=== PATIENT | female | born 1940 | race Caucasian/White ===

== ENCOUNTER 2020-12-27 08:21 | Outpatient (REF) | payer MEDICARE, OTHER, SELFPAY ==
--- NOTE | ~2020-12-27 | US_ITS ---
EXAMINATION: US ABDOMEN AORTA CLINICAL INFORMATION: Aortic ectasia. COMPARISON: None TECHNIQUE: Limited abdominal ultrasound with imaging of abdominal aorta was performed. FINDINGS: There is atherosclerotic plaque seen throughout the abdominal aorta with acoustic shadowing in the proximal and mid abdominal aorta. The proximal abdominal aorta measures 2.7 x 2.6 cm in AP and transverse dimension. Mid abdominal aorta measures 2.4 x 2.1 cm in AP and transverse dimension. Distal abdominal aorta measures 2.0 x 2.0 cm. Peak systolic velocity measures 50.7 cm/s. Right common iliac artery measures 1.2 x 1.1 cm. Left common iliac artery measures 1.2 x 1.2 cm. US/US abdominal aortic aneurysm IMPRESSION: No aneurysmal dilatation of abdominal aorta is seen. Atherosclerotic plaque seen throughout the abdominal aorta with acoustic shadowing.
== END 2020-12-27 08:22 | disposition home or self-care (01) ==
LOC: HO.US 08:21
PROVIDERS: PCP Internal Medicine; Visit Provider Internal Medicine
DX: I77.819 Aortic ectasia, unspecified site (principal)
CPT/HCPCS: 76706

== ENCOUNTER 2020-12-27 09:53 | Outpatient (REF) | payer MEDICARE, OTHER, SELFPAY ==
[2020-12-27 14:25] LABS: Alanine Aminotransferase 18 U/L (0-31); Albumin Level 4.3 g/dL (3.5-5.0); Alkaline Phosphatase 50 U/L (39-117); Anion Gap 14 (12-20); Aspartate Amino Transferase 19 U/L (5-31); Bilirubin Total 0.6 mg/dL (0.0-1.0); Blood Urea Nitrogen 13 mg/dL (9-16); Calcium 9.8 mg/dL (8.4-10.2); Carbon Dioxide 28 mmol/L (22-29); Chloride 102 mmol/L (96-108); Estimated Glomerular Filt Rate > 60; Glucose Fasting 85 mg/dL (60-99); Potassium 4.1 mmol/L (3.3-5.1); Sodium 140 mmol/L (135-145); Total Protein 7.3 g/dL (6.5-8.0)
[2020-12-27 14:50] LABS: Vitamin D 25-OH Total 25.7 ng/mL (>30)
[2021-01-02 05:36] LABS: N-Telopeptide 18 (see note); NTXCreaRU 33 mg/dL (20-275)
== END 2020-12-27 09:54 | disposition home or self-care (01) ==
LOC: HO.10HDL 09:53
PROVIDERS: Visit Provider Internal Medicine
DX: E55.9 Vitamin D deficiency, unspecified (principal); M81.0 Age-related osteoporosis without current pathological fracture
CPT/HCPCS: 36415; 80053; 82306; 82523

== ENCOUNTER 2021-05-25 08:53 | Outpatient (REF) | payer MEDICARE, OTHER, SELFPAY ==
[2021-05-25 10:17] LABS: Hematocrit 38.1 % (37-47); Hemoglobin 12.4 g/dl (12.0-16.0); Mean Corpuscular HGB Conc 32.5 g/dl (31.0-35.0); Mean Corpuscular Hemoglobin 32.3 pg (27.0-33.0); Mean Corpuscular Volume 99.2 fL (80-98); Platelet Count 272 X10*3/uL (160-400); Red Blood Count 3.84 X10*6/uL (4.20-5.50); White Blood Count 4.2 X10*3/uL (4.8-10.8)
[2021-05-25 10:37] LABS: Alanine Aminotransferase 17 U/L (0-31); Albumin Level 4.2 g/dL (3.5-5.0); Alkaline Phosphatase 54 U/L (39-117); Anion Gap 12 (12-20); Aspartate Amino Transferase 21 U/L (5-31); Bilirubin Total 0.6 mg/dL (0.0-1.0); Blood Urea Nitrogen 11 mg/dL (9-16); Calcium 9.2 mg/dL (8.4-10.2); Carbon Dioxide 25 mmol/L (22-29); Chloride 106 mmol/L (96-108); Cholesterol 196 mg/dL; Estimated Glomerular Filt Rate > 60; Glucose Fasting 109 mg/dL (60-99); HDL Cholesterol 68 mg/dL; LDL Cholesterol Calculated 113 mg/dl; Potassium 4.2 mmol/L (3.3-5.1); Sodium 139 mmol/L (135-145); Total Protein 7.1 g/dL (6.5-8.0); Triglycerides 75 mg/dL
[2021-05-25 10:37] LABS: Appearance Urine CLEAR; Color Urine YELLOW; Glucose Urine UA NEG (NEG); Leukocyte Esterase Urine TRACE (NEG); Nitrite Urine NEG (NEG); Urine Blood NEG (NEG); Urine Ketones NEG (NEG); Urine Protein NEG (NEG-TRACE)
[2021-05-25 10:53] LABS: RBC Urine 0-2 /HPF (0); Renal Epithelial Cells Urine TRACE /LPF; Squamous Epithelial Cell Urine 1+ /LPF
[2021-05-25 10:59] LABS: Thyroid Stimulating Hormone 1.68 uIU/mL (0.32-4.0); Vitamin D 25-OH Total 33.4 ng/mL (>30)
== END 2021-05-25 08:54 | disposition home or self-care (01) ==
LOC: HO.10HDL 08:53
PROVIDERS: Visit Provider Internal Medicine
DX: M81.0 Age-related osteoporosis without current pathological fracture (principal); I10 Essential (primary) hypertension; E03.9 Hypothyroidism, unspecified
CPT/HCPCS: 36415; 80053; 80061; 81001; 82306; 84443; 85027

== ENCOUNTER → 2021-06-27 14:30 | Outpatient (BNVA) | payer MEDICARE, OTHER, SELFPAY | PROVIDERS: PCP Internal Medicine; Referring Provider Internal Medicine; Visit Provider Internal Medicine Cardiovascular Disease | DX: R42 Dizziness and giddiness (principal); I10 Essential (primary) hypertension; I47.1 Supraventricular tachycardia; R07.9 Chest pain, unspecified; Z88.2 Allergy status to sulfonamides; Z79.899 Other long term (current) drug therapy | CPT/HCPCS: 93005; 99202 ==

== ENCOUNTER → 2021-08-28 08:18 | Outpatient (REF) | payer MEDICARE, OTHER, SELFPAY ==
--- NOTE | ~2021-08-28 | NM_ITS ---
Exercise Myocardial perfusion study Indication: Chest pain to evaluate for myocardial ischemia Technique: The patient was brought in for an exercise perfusion study on 08/28/2021. Patient performed exercise as per Dandy protocol and was injected 25 mCi of sestamibi was given intravenously one target HR was achieved. Images were obtained using the SPECT gamma camera interlaced with the gating device. Images were obtained in supine position. Resting perfusion study was performed on 08/29/2021. Patient was administered 25 mCi of sestamibi intravenously at rest. Images were then obtained in supine position. Images obtained with and without CT attenuation. Total DLP 76 mGy-cm. Images were processed with the software and compared side to side in short axis, horizontal long axis and vertical long axis views. Findings: The stress perfusion study showed non attenuated attenuated corrected images show normal uptake of radiotracer in all segments of LV myocardium.. The gated study shows normal LV systolic function with calculated LVEF of 65%. LV cavity is normal in in size. The gated study shows normal systolic wall thickening and contraction of all segments. There is no transient ischemic dilation. Resting study were suboptimal due to subdiaphragmatic uptake otherwise shows shows overall normal uptake of radiotracer in all segments of LV myocardium. Gating at rest reveals normal systolic wall motion with visually estimated ejection fraction at greater than 60%. The findings are consistent with normal myocardial perfusion. NM/NM cardiolite stress test Impression: 1. Normal myocardial perfusion 2. Gated LVEF is T5 percent 3. Transient ischemic dilatation not present Stress EKG is negative for ischemia workload achieved
--- NOTE | 2021-08-28 08:26 | CA_ITS ---
Acquisition Time: 2021-08-28 10:39:24 Total Exercise Time: 00:04:55 Test Indications: DIZZINESS, SVT Medications: SEE CHART Protocol: ECHO Max HR: 160 BPM 114% of Pred: 140 BPM Max BP: 160/090 mmHG Max Work Load: 6.8 METS Exercise stress test with exercise 4 min 55 sec of Echo protocol, without anginal symptoms or report of dizziness, with isolated PACs and short runs of atrial tachycardia, with normotensive response to exercise, without EKG changes meeting criteria for ischemia. Nuclear images pending. Test reviewed with Dr Ramesh. Referred By: Marcellus Gusman Overread By: DOROTHEA JOHNSTON
--- NOTE | 2021-08-28 08:26 | CA_ITS ---
Transthoracic Echocardiogram Amended Patient (Last, First, Middle): Ariana Valdes A Gender: Female Date of : 1940 Age: 80 Procedure Date: 08/28/2021 Procedure Type: Transthoracic Echocardiogram Location: OP Height: 154.94 cm Weight: 57.61 kg BSA: 1.56 m2 Heart Rate: bpm BP: 130 / 80 mmHg Shuttle Van Driver: CINDY Referring MD: Marcellus Gusman MD Symptoms: R42 - Dizziness and giddiness Study Quality: Fair ECG Rhythm: Sinus Conclusions: - The left ventricular systolic function is normal. The calculated ejection fraction is 62% by biplane method. - No obvious valvular pathology seen on this study. Findings Left Ventricle Normal left ventricular cavity size. There is normal left ventricular wall thickness. The left ventricular systolic function is normal. The calculated ejection fraction is 62% by biplane method. E/E prime ratio is between 8 and 15 consistent with indeterminate filling pressures. Evidence suggests grade I (mild) diastolic dysfunction. Right Ventricle Normal right ventricular cavity size and systolic function. Atria The left atrium is normal in size. The right atrium is normal in size. Aortic Valve There is a normal trileaflet aortic valve. There is no aortic valve stenosis. There is trace (trivial) aortic valve regurgitation. Mitral Valve The mitral valve appears normal. There is trace mitral valve regurgitation. There is no mitral valve stenosis. Pulmonic Valve The pulmonic valve was not well visualized. Tricuspid Valve Normal tricuspid valve structure. There is mild tricuspid valve regurgitation. The pulmonary artery systolic pressure is normal. Great Vessels The aortic annulus, sinuses of valsalva, and asc aorta are normal in size. Venous The inferior vena cava is normal in size and collapses greater than 50% with inspiration. Pericardium/Pleural There is no evidence of pericardial effusion. Prior Study Comparison No prior study available for comparison. Recommendations, Care & Conclusions No obvious valvular pathology seen on this study. Measurements 2D Linear Measurements IVSd: 0.92 0.6-0.9/0.6-1.0 cm LVIDd: 3.80 3.9-5.3/4.2-5.9 cm LVIDd Index: 2.44 2.4-3.2/2.2-3.1 cm/m2 LVIDs: 2.69 2.0-3.6 cm LVPWd: 0.84 0.7-1.1 cm Ao Root: 3.40 2.1-3.5 cm LA Diam: 3.50 2.7-3.8/3.0-4.0 cm LAIDs Index: 2.24 1.5-2.3 cm/m2 LV Mass: 120.92 67-162/88-224 g LV Mass Index: 77.51 43-95/49-115 g/m2 LVOT Diam: 2.00 3.0+(-)1.3 cm 2D Volumes LA Vol: 22.20 2D Systolic Function EF 4C: 60.90 >55% EF 2C: 63.00 >55% EF BiP: 61.90 >55% Mitral Valve MV Pk E: 0.65 MV PK A: 0.84 MV Decel Time: 157.00 E/A: 0.80 E'Lateral: 7.72 E'Medial: 5.77 E/E' Med: 11.20 E/E' Lat: 8.40 PHT: 46.00 MVA PHT: 4.78 Decel Mcdonald: 4.12 Aortic Valve AoV Pk Eliezer: 1.13 AoV Pk Grad: 5.00 LVOT LVOT Pk Eliezer: 0.86 LVOT Mn Eliezer: 0.53 LVOT VTI: 0.17 LVOT Pk Grad: 3.00 LVOT Mn Grad: 1.00 LVOT Diam: 2.00 LVOT Area: 3.14 Diastolic Function MV Pk E: 0.65 MV Pk A: 0.84 E/A: 0.80 E'Medial: 5.77 E/E' Med: 11.20 E' Laterial: 7.72 E/E' Lat: 8.40 Right Ventricle TAPSE (mm): 2.26 TVS' Eliezer: 14.70 Tricuspid Valve TR Pk Eliezer: 2.29 TR Pk Grad: 21.00 RA Press: 3.00 RVSP: 24.00 Great Vessels Aorta Ao Root-2D: 3.40 2.0-3.7 cm Ao Asc: 3.60 2.1-3.4 cm Updated in Other Vendor System with Status of Final Vasyl Ramesh MD electronically signed on 08/30/2021 5:20:17 PM with status of Final
== END ==
LOC: HO.CARD 08:18
PROVIDERS: Visit Provider Internal Medicine Cardiovascular Disease
DX: R07.9 Chest pain, unspecified (principal); R42 Dizziness and giddiness
CPT/HCPCS: 78452; 93017; 93306; A9500

== ENCOUNTER 2021-09-03 09:48 | Outpatient (REF) | payer MEDICARE, OTHER, SELFPAY ==
--- NOTE | ~2021-09-03 | US_ITS ---
EXAMINATION: US EXTRACRANIAL CAROTID DUPLEX, BILATERAL CLINICAL INFORMATION: This is an 80-year-old female with dizziness and giddiness. Hypertension. Carotid artery disease. COMPARISON: None TECHNIQUE: Real-time ultrasound and Doppler techniques (integrating B-mode 2-D vascular images, Doppler spectral analysis and color-flow Doppler imaging) were utilized to interrogate the extracranial carotid arteries, the vertebral arteries and proximal subclavian arteries bilaterally. The degree of stenosis is determined by criteria similar to NASCET. FINDINGS: Right Side: 1. There is minimal atherosclerotic plaque seen in the bifurcation/proximal ICA region. 2. The common carotid artery PSV proximally is 74 cm/s and distally 68 cm/s. 3. The proximal internal carotid artery velocities are 63 cm/s systolic and 19 cm/s diastolic. 4. The proximal external carotid artery PSV is 78 cm/s. 5. The vertebral artery shows antegrade flow. 6. The subclavian artery waveforms are normal. Left Side: 1. There is minimal atherosclerotic plaque seen in the bifurcation/proximal ICA region. 2. The common carotid artery PSV proximally is 72 cm/s and distally 76 cm/s. 3. The proximal internal carotid artery velocities are 55 cm/s systolic and 17 cm/s diastolic. 4. The proximal external carotid artery PSV is 53 cm/s. 5. The vertebral artery shows antegrade flow. 6. The subclavian artery waveforms are normal. There is a 1.6 x 0.6 x 0.7 cm lymph node adjacent to the right external carotid artery. This is nonspecific. It has smooth margins without calcification and a normal-appearing fatty hilum. Clinical correlation is suggested. US/US carotid duplex BI IMPRESSION: 1. RIGHT: Minimal, non-hemodynamically significant stenosis of the proximal right internal carotid artery corresponding to a 0-49% stenosis by velocity criteria. 2. LEFT: Minimal, non-hemodynamically significant stenosis of the proximal left internal carotid artery corresponding to a 0-49% stenosis by velocity criteria. 3. There is a nonspecific lymph node adjacent to the right external carotid artery.
== END 2021-09-03 09:49 | disposition home or self-care (01) ==
LOC: HO.US 09:48
PROVIDERS: PCP Internal Medicine; Visit Provider Internal Medicine Cardiovascular Disease
DX: R42 Dizziness and giddiness (principal); I25.10 Atherosclerotic heart disease of native coronary artery without angina pectoris; I10 Essential (primary) hypertension
CPT/HCPCS: 93880

== ENCOUNTER 2021-10-03 10:46 | Outpatient (REF) | payer MEDICARE, OTHER, SELFPAY ==
[2021-10-03 14:02] LABS: Alanine Aminotransferase 18 U/L (0-31); Albumin Level 4.4 g/dL (3.5-5.0); Alkaline Phosphatase 55 U/L (39-117); Anion Gap 12 (12-20); Aspartate Amino Transferase 23 U/L (5-31); Bilirubin Total 0.6 mg/dL (0.0-1.0); Blood Urea Nitrogen 11 mg/dL (9-16); Calcium 9.5 mg/dL (8.4-10.2); Carbon Dioxide 29 mmol/L (22-29); Chloride 101 mmol/L (96-108); Estimated Glomerular Filt Rate > 60; Glucose Fasting 89 mg/dL (60-99); Potassium 4.2 mmol/L (3.3-5.1); Sodium 138 mmol/L (135-145); Total Protein 7.6 g/dL (6.5-8.0)
[2021-10-03 14:26] LABS: Vitamin D 25-OH Total 30.3 ng/mL (>30)
== END 2021-10-03 10:47 | disposition home or self-care (01) ==
LOC: HO.10HDL 10:46
PROVIDERS: Visit Provider Internal Medicine
DX: E55.9 Vitamin D deficiency, unspecified (principal)
CPT/HCPCS: 36415; 80053; 82306

== ENCOUNTER → 2021-10-09 12:09 | Outpatient (BNVA) | payer MEDICARE, OTHER, SELFPAY | PROVIDERS: PCP Internal Medicine; Referring Provider Internal Medicine; Visit Provider Internal Medicine Cardiovascular Disease | DX: I47.1 Supraventricular tachycardia (principal); R42 Dizziness and giddiness | CPT/HCPCS: 99212 ==

== ENCOUNTER 2022-03-08 10:14 | Outpatient (REF) | payer MEDICARE, OTHER, SELFPAY ==
[2022-03-08 10:36] LABS: MANUAL DIFF FLAG NO
[2022-03-08 10:42] LABS: Basophils Percent Auto 0.8 % (0-2); Eosinophils Absolute Auto 0.2 X10*3/uL (0.0-0.4); Hematocrit 37.8 % (37.0-47.0); Hemoglobin 12.4 g/dl (12.0-16.0); Imm Gran Abs Auto 0.02 X10*3/uL (0.00-0.03); Imm Gran Pct Auto 0.4 % (0.0-0.4); Lymphocytes Absolute Auto 1.7 X10*3/uL (1.2-4.9); Lymphocytes Percent Auto 33.4 % (20-40); Mean Corpuscular HGB Conc 32.8 g/dl (31.0-35.0); Mean Corpuscular Hemoglobin 32.4 pg (27.0-33.0); Mean Corpuscular Volume 98.7 fL (80.0-98.0); Mean Platelet Volume 9.6 fL (9.4-12.3); Monocytes Absolute Auto 0.5 X10*3/uL (0.1-1.2); Monocytes Percent Auto 10.5 % (2-11); Neutrophils Absolute Auto 2.6 x10*3/uL (2.0-8.3); Neutrophils Percent Auto 51.9 % (45-73); Platelet Count 259 X10*3/uL (160-400); Red Blood Count 3.83 X10*6/uL (4.20-5.50); Red Cell Distribution Width 13.2 % (11.0-16.0); White Blood Count 4.9 X10*3/uL (4.8-10.8)
[2022-03-08 12:03] LABS: Alanine Aminotransferase 15 U/L (0-31); Albumin Level 4.4 g/dL (3.5-5.0); Alkaline Phosphatase 54 U/L (39-117); Anion Gap 12 (12-20); Aspartate Amino Transferase 19 U/L (5-31); Bilirubin Total 0.8 mg/dL (0.0-1.0); Blood Urea Nitrogen 15 mg/dL (9-16); Calcium 9.4 mg/dL (8.4-10.2); Carbon Dioxide 26 mmol/L (22-29); Chloride 102 mmol/L (96-108); Cholesterol 187 mg/dL; Estimated Glomerular Filt Rate > 60; Glucose Fasting 111 mg/dL (60-99); HDL Cholesterol 74 mg/dL; LDL Cholesterol Calculated 101 mg/dl; Sodium 136 mmol/L (135-145); Total Protein 7.4 g/dL (6.5-8.0); Triglycerides 60 mg/dL
[2022-03-08 12:09] LABS: Free T4 (Free Thyroxine) 1.07 ng/dL (0.71-1.85); Thyroid Stimulating Hormone 2.42 uIU/mL (0.32-4.0)
== END 2022-03-08 10:15 | disposition home or self-care (01) ==
LOC: HO.10HDL 10:14
PROVIDERS: Visit Provider Internal Medicine
DX: I10 Essential (primary) hypertension (principal); E78.00 Pure hypercholesterolemia, unspecified; E03.9 Hypothyroidism, unspecified
CPT/HCPCS: 36415; 80053; 80061; 84439; 84443; 85025

== ENCOUNTER 2023-01-16 09:58 | Outpatient (REF) | payer MEDICARE, OTHER, SELFPAY ==
[2023-01-16 10:54] LABS: MANUAL DIFF FLAG NO
[2023-01-16 11:06] LABS: Basophils Percent Auto 0.9 % (0-2); Eosinophils Absolute Auto 0.1 X10*3/uL (0.0-0.4); Eosinophils Percent Auto 2.7 % (0-4); Hematocrit 38.8 % (37.0-47.0); Hemoglobin 12.6 g/dl (12.0-16.0); Lymphocytes Absolute Auto 1.9 X10*3/uL (1.2-4.9); Lymphocytes Percent Auto 41.3 % (20-40); Mean Corpuscular HGB Conc 32.5 g/dl (31.0-35.0); Mean Corpuscular Hemoglobin 32.1 pg (27.0-33.0); Mean Corpuscular Volume 98.7 fL (80.0-98.0); Mean Platelet Volume 9.8 fL (9.4-12.3); Monocytes Absolute Auto 0.5 X10*3/uL (0.1-1.2); Monocytes Percent Auto 11.6 % (2-11); Neutrophils Percent Auto 43.5 % (45-73); Platelet Count 274 X10*3/uL (160-400); Red Blood Count 3.93 X10*6/uL (4.20-5.50); Red Cell Distribution Width 12.6 % (11.0-16.0); White Blood Count 4.5 X10*3/uL (4.8-10.8)
[2023-01-16 11:11] LABS: Appearance Urine Clear; Color Urine Yellow; Glucose Urine UA Negative (Negative); Leukocyte Esterase Urine Moderate (2+) (Negative); Nitrite Urine Negative (Negative); UMIC TRIGGER UA YES; Urine Blood Negative (Negative); Urine Ketones Negative (Negative); Urine Protein Negative (Neg-Trace)
[2023-01-16 11:17] LABS: Bacteria Urine Trace (None Seen); Hyaline Casts Urine 0-2 /LPF (0-2); RBC Urine 0-2 /HPF (0-2); Squamous Epithelial Cell Urine 0-2 /HPF (0-2); WBC Urine 21-50 /HPF (0-5)
[2023-01-16 11:58] LABS: Alanine Aminotransferase 14 U/L (0-31); Albumin Level 4.1 g/dL (3.5-5.0); Alkaline Phosphatase 54 U/L (39-117); Anion Gap 12 (12-20); Aspartate Amino Transferase 18 U/L (5-31); Bilirubin Total 0.7 mg/dL (0.0-1.0); Blood Urea Nitrogen 13 mg/dL (9-16); Calcium 9.5 mg/dL (8.4-10.2); Carbon Dioxide 28 mmol/L (22-29); Chloride 102 mmol/L (96-108); Cholesterol 188 mg/dL; Estimated Glomerular Filt Rate > 60; Glucose Random 93 mg/dL (60-115); HDL Cholesterol 70 mg/dL; LDL Cholesterol Calculated 104 mg/dl; Potassium 4.1 mmol/L (3.3-5.1); Sodium 138 mmol/L (135-145); Total Protein 7.1 g/dL (6.5-8.0); Triglycerides 72 mg/dL
== END 2023-01-16 09:59 | disposition home or self-care (01) ==
LOC: HO.10HDL 09:58
PROVIDERS: Visit Provider Internal Medicine
DX: E78.00 Pure hypercholesterolemia, unspecified (principal); I10 Essential (primary) hypertension; E03.9 Hypothyroidism, unspecified
CPT/HCPCS: 36415; 80053; 80061; 81001; 84443; 85025

== ENCOUNTER 2023-01-23 10:18 | Outpatient (REF) | payer MEDICARE, OTHER, SELFPAY ==
[2023-01-23 13:31] LABS: Appearance Urine Clear; Color Urine Yellow; Glucose Urine UA Negative (Negative); Leukocyte Esterase Urine Small (1+) (Negative); Nitrite Urine Negative (Negative); PH 5.5 (5.0-9.0); UMIC TRIGGER UA YES; Urine Blood Negative (Negative); Urine Ketones Negative (Negative); Urine Protein Negative (Neg-Trace)
[2023-01-23 13:38] LABS: Bacteria Urine None Seen (None Seen); Hyaline Casts Urine 0-2 /LPF (0-2); RBC Urine 0-2 /HPF (0-2); Squamous Epithelial Cell Urine 0-2 /HPF (0-2)
== END 2023-01-23 10:19 | disposition home or self-care (01) ==
LOC: HO.10HDLNP 10:18
PROVIDERS: Visit Provider Internal Medicine
DX: R82.81 Pyuria (principal)
CPT/HCPCS: 81001; 87086

== ENCOUNTER 2023-03-20 11:39 | Outpatient (REF) | payer MEDICARE, OTHER, SELFPAY ==
[2023-03-20 14:30] LABS: Alanine Aminotransferase 20 U/L (0-31); Albumin Level 4.4 g/dL (3.5-5.0); Alkaline Phosphatase 58 U/L (39-117); Anion Gap 16 (12-20); Aspartate Amino Transferase 21 U/L (5-31); Bilirubin Total 0.7 mg/dL (0.0-1.0); Blood Urea Nitrogen 13 mg/dL (9-16); Calcium 9.3 mg/dL (8.4-10.2); Carbon Dioxide 23 mmol/L (22-29); Chloride 103 mmol/L (96-108); Estimated Glomerular Filt Rate > 60; Glucose Random 85 mg/dL (60-115); Potassium 4.1 mmol/L (3.3-5.1); Sodium 138 mmol/L (135-145); Total Protein 7.9 g/dL (6.5-8.0)
[2023-03-20 14:34] LABS: TSH reflex Free T4 2.15 uIU/mL (0.32-4.0); Vitamin D 25-OH Total 59.6 ng/mL (>30)
[2023-03-28 02:09] LABS: N-Telopeptide 16 (see note); NTXCreaRU 42 mg/dL (20-275)
== END 2023-03-20 11:40 | disposition home or self-care (01) ==
LOC: HO.10HDL 11:39
PROVIDERS: Visit Provider Internal Medicine
DX: M81.0 Age-related osteoporosis without current pathological fracture (principal); E55.9 Vitamin D deficiency, unspecified; E03.9 Hypothyroidism, unspecified
CPT/HCPCS: 36415; 80053; 82306; 82523; 84443

== ENCOUNTER 2023-04-04 09:39 | Outpatient (REF) | payer MEDICARE, OTHER, SELFPAY ==
--- NOTE | ~2023-04-04 | US_ITS ---
EXAMINATION: US RETROPERITONEAL LIMITED (AORTA) CLINICAL INFORMATION: Aortic ectasia. COMPARISON: Ultrasound aorta 12/27/2020 and 06/30/2019. TECHNIQUE: Alexandre-scale, color Doppler and spectral Doppler evaluation of the abdominal aorta. FINDINGS: Atherosclerotic aorta. The measurements of the aorta in maximum AP and transverse dimensions respectively are as follows: Proximal: 2.9 x 2.6 cm. Mid: 1.9 x 1.8 cm. Distal: 1.9 x 2.0 cm. PSV: 53.1 cm/s. The measurements of the common iliac arteries in maximum AP and TRV dimensions are as follows: Right: AP: 1.0 cm. TRV: 1.0 cm. Left: AP: 1.1 cm. TRV: 0.8 cm. US/US aorta IMPRESSION: Negative for abdominal aortic aneurysm.
== END 2023-04-04 09:40 | disposition home or self-care (01) ==
LOC: HO.US 09:39
PROVIDERS: PCP Internal Medicine; Visit Provider Internal Medicine
DX: I77.811 Abdominal aortic ectasia (principal)
CPT/HCPCS: 76775

== ENCOUNTER 2024-03-25 06:45 | Emergency (ER) | payer MEDICARE, OTHER, SELFPAY ==
--- NOTE | ~2024-03-25 | CT_ITS ---
EXAMINATION: CT ABDOMEN AND PELVIS WITH CONTRAST CLINICAL INFORMATION: Flank pain COMPARISON: Ultrasound abdominal aorta 04/04/2023 TECHNIQUE: Multidetector volumetric images were obtained from the superior aspect of the liver through the pubic symphysis following administration 85 mL of Omnipaque 350 intravenous contrast. Sagittal and coronal reformatted images were obtained on the technologist's workstation. Oral contrast: No It should be noted that all 85 mL of the contrast infiltrated in the patient's right arm at the site of IV insertion. The physician caring for the patient in the emergency room was notified and will follow up with the patient to ensure no complications. This CT examination was performed using dose optimization techniques as appropriate, variously including the following: *Automated exposure control *Adjustment of mA and/or kV according to patient size (this includes techniques or standardized protocols for targeted exams where dose is matched to indication/reason for exam; i.e. extremities or head) *Use of iterative reconstruction technique DLP: 351 mGy-cm FINDINGS: LUNG BASES: The visualized lung bases are unremarkable. LIVER, GALLBLADDER, AND BILIARY TREE: The liver is normal in size, shape, and attenuation. No focal hepatic lesion or biliary ductal dilatation is present. The gallbladder is unremarkable with no evidence of radiopaque gallstones, gallbladder wall thickening, or obvious pericholecystic inflammatory changes. PANCREAS: Unremarkable. SPLEEN: Unremarkable. ADRENAL GLANDS: Unremarkable. KIDNEYS AND URETERS: The kidneys are normal in size, shape, and attenuation. No hydronephrosis, hydroureter, or calculi seen. No perinephric stranding. BLADDER: Unremarkable. GASTROINTESTINAL TRACT: The small and large bowel are unremarkable aside from the presence of colonic diverticula without diverticulitis. The appendix is unremarkable. ABDOMINAL WALL: No significant hernia is appreciated. LYMPH NODES: No retroperitoneal lymphadenopathy. VASCULAR: Calcific atherosclerotic changes are present in the aorta and iliofemoral vessels. There is no evidence of an abdominal aortic aneurysm. PELVIC VISCERA: The uterus and adnexa are unremarkable. OSSEOUS STRUCTURES: Minimal degenerative changes are present spine with mild grade 1 anterolisthesis of L4 upon L5. CT/CT abdomen pelvis w IV con IMPRESSION: 1. A cause for the patient's flank pain has not been found. 2. Incidental note made of colonic diverticulosis without diverticulitis, degenerative changes in the spine and other findings described above. Fleischner guidelines were followed.
[2024-03-25 07:04] VITALS: BP 156/101; PULSE 84; RESP 16; TEMP 36.2; O2SAT 95; BMI 23.2
--- NOTE | 2024-03-25 07:34 | ED_ITS ---
HPI - General Adult General Chief complaint: Back Pain/Injury Stated complaint: low back pain Time Seen by Provider: 03/25/24 07:33 Source: patient Mode of arrival: ambulatory Limitations: no limitations History of Present Illness ED Provider: Ingrid Santiago PA-C HPI narrative: Patient is an 83 year old assigned female at with a history of HTN and SVT presenting to the emergency department today with left sided low back pain. Patient states that over the last 2 days she has had left sided low back pain that radiates into the front. Patient denies any dizziness, lightheadedness, abdominal pain, nausea, vomiting, fever, chills, blurry vision, double vision, loss of vision, chest pain, difficulty breathing, shortness of breath, night sweats, pain with urination, increased urinary frequency, increased urinary urgency, blood in her urine or stool, syncope or a near syncopal episode, recent trauma or falls, bowel incontinence, bladder incontinence, or any other complaints at this time. Onset (ago): day(s) (2) Location: back and left Radiation: abdomen Severity: mild Severity scale (1-10): 4 Quality: aching Pain Consistency: constant Relieving factors: none Exacerbating factors: none Associated symptoms: denies other symptoms Treatments prior to arrival: NSAID Related Data Home Medications ?Medication ?Instructions ?Recorded ?Confirmed amlodipine 2.5 mg tablet 2.5 mg PO DAILY 06/27/21 10/09/21 aspirin 81 mg tablet,delayed 81 mg PO DAILY 06/27/21 10/09/21 release (Adult Aspirin Regimen) latanoprost 0.005 % eye drops 0 drp ophthalmic (eye) 06/27/21 10/09/21 levothyroxine 112 mcg tablet 112 mcg PO DAILY 06/27/21 10/09/21 losartan 100 mg tablet 100 mg PO DAILY 06/27/21 10/09/21 Previous Rx's ?Medication ?Instructions ?Recorded atorvastatin 20 mg tablet 20 mg PO DAILY #90 tabs 03/05/22 cefuroxime axetil 250 mg tablet 250 mg PO BID 7 days #14 tabs 03/25/24 Allergies Allergy/AdvReac Type Severity Reaction Status Date / Time Sulfa (Sulfonamide Allergy Mild hives Verified 03/25/24 07:07 Antibiotics) Review of Systems 2 Constitutional: Constitutional: Reports no additional constitutional complaints, Denies chills, Denies fever(s) and Denies night sweats Eyes: Eyes: Reports no additional eye complaints, Denies blurry vision, Denies change in vision, Denies diplopia, Denies eye discharge, Denies loss of vision and Denies eye pain ENT: Denies dizziness Cardiovascular: Cardiovascular: Reports no additional cardiovascular complaints, Denies chest pain, Denies lightheadedness, Denies Loss of Consciousness and Denies dyspnea Respiratory: Respiratory: Reports no additional respiratory complaints and Denies dyspnea Gastrointestinal: Gastrointestinal: Reports no additional gastrointestinal complaints, Denies melena, Denies hematochezia, Denies change in bowel habits and Denies change in stool character Genitourinary: Genitourinary: Denies hematuria, Denies urinary frequency, Denies dysuria, Denies urinary incontinence, Denies urinary hesitancy and Denies urinary urgency Musculoskeletal: Musculoskeletal: Reports no additional musculoskeletal complaints, Reports back pain, Denies numbness and Denies tingling Neurologic: Denies dizziness, Denies loss of vision, Denies numbness and Denies tingling Psychiatric: Psychiatric: Reports no additional psychiatric complaints Endocrine: Endocrine: Reports no additional endocrine complaints Hematologic/Lymphatic: Hematologic/Lymphatic: Reports no additional hematologic/lymphatic complaints Allergic/Immunologic: Allergic/Immunologic: Reports no additional allergic/immunologic complaints [facility] Past Medical History Attestation statement: The following information was validated with the patient. Source: old records reviewed and nursing notes reviewed Medical History SVT (supraventricular tachycardia) HTN (hypertension) Family History Family History Father CAD (coronary artery disease) Mother No problems noted. Social History Social History Alcohol intake: current Alcohol intake frequency: holidays/special occasions only Patient Tobacco Use Status: Never used Tobacco Smoked in Last 30 Days: No Use of substances other than those prescribed or required for medical reasons: No Advance Directives: No Advance Directives Information Provided: No Do you have a plan to hurt others: No Plan Physical Exam ED Vital Signs: Vital Signs - 24 hr 03/25/24 07:04 03/25/24 10:06 03/25/24 10:31 Temperature 97.1 F Pulse Rate 84 71 71 Respiratory Rate 16 15 14 Blood Pressure 156/101 H 149/84 H 149/84 H Pulse Oximetry 95 96 Oxygen Delivery Method Room Air Room Air 03/25/24 11:39 Temperature 0 F L Pulse Rate 71 Respiratory Rate 14 Blood Pressure 149/84 H Pulse Oximetry 98 Oxygen Delivery Method Room Air BMI result Body Mass Index 23.2 Const General: cooperative, no acute distress, alert and awake Nutritional Appearance: well nourished Orientation/consciousness: patient oriented x3 Limitations: no limitations HENMT Head: Yes normal to inspection and Yes atraumatic Ears: hearing grossly normal bilaterally and external ears normal General nose exam: Normal external nose present, no nasal discharge noted and no epistaxis Face and sinus: Yes normal facial exam, No abrasion and No laceration Mouth: Normal oral and palatal mucosa present, no drooling and no muffled voice Eyes General: appearance normal, both eyes and all related structures Periorbital: periorbital findings normal Eyelids: Yes eyelids normal Conjunctivae: conjunctivae normal Pupils: Equal, round and reactive pupils present EOM: EOMs intact bilaterally Neck Neck: Yes normal visual inspection, Yes full ROM and Yes no lymphadenopathy Chest Chest palpation & inspection: normal inspection of the chest Resp Effort & Inspection: normal respiratory effort and able to speak in complete sentences GI Inspection: Yes normal to inspection General: Yes no CVA tenderness Back/Spine/Pelvis Back: no CVA tenderness Cervical Spine: normal cervical lordosis and cervical ROM normal Thoracic/Lumbar Spine: thoracic and lumbar spine normal to inspection Pelvis: no pain with anterior-posterior compression Neuro General: patient oriented x3 and moves all extremities Cranial nerves: Yes Equal, round and reactive pupils present Cognition (Neuro): normal cognition Extrem General: Yes normal to inspection, Yes full ROM and Yes capillary refill normal Psych Appearance: grossly normal Mental Status: mental status grossly normal Affect: normal affect Attitude: cooperative Thought process: Normal thought process present Thought content: Normal thought content present Insight: Good insight present (Psych) Medications Administered Discontinued Medications Generic Name Dose Route Start Last Admin Trade Name Freq PRN Reason Stop Dose Admin Cyclobenzaprine HCl 5 mg 03/25/24 09:12 03/25/24 09:31 Cyclobenzaprine Hcl 5 Mg Tablet PO 03/25/24 09:13 5 mg ONCE ONE Administration Iohexol 100 ml 03/25/24 09:17 03/25/24 09:17 Iohexol 350 Mg/Ml 100 Ml Infus..Btl IV 03/25/24 09:18 85 ml ONCE ONE Administration Ketorolac Tromethamine 15 mg 03/25/24 09:12 03/25/24 09:31 Ketorolac Tromethamine 15 Mg/Ml Vial IM 03/25/24 09:13 15 mg ONCE ONE Administration Oxycodone HCl 5 mg 03/25/24 09:12 03/25/24 09:31 Oxycodone Hcl Immed Release 5 Mg Tablet PO 03/25/24 09:13 5 mg ONCE ONE Administration Medical Decision Making Medical Decision Making [facility] Narrative: Patient is an 83 year old assigned female at with a history of HTN and SVT presenting to the emergency department today with left sided low back pain. Patient's physical exam was unremarkable. Patient's blood work was unremarkable. Patient's urine showed a possible UTI, given the patient's clinical presentation - will treat. Patient's CT abdomen/pelvis showed no acute process. I explained my physical exam findings as well as all test results to the patient. I answered all questions asked by the patient. I stressed the importance of the patient taking her medication as directed (either prescribed or as the over the counter packaging recommends). I stressed the importance of the patient following up with her primary care provider. I stressed the importance of the patient returning to the emergency department immediately if her symptoms were to worsen or if she were to develop any dizziness, shortness of breath, difficulty breathing, chest pain, blurry vision, loss of vision, nausea, vomiting, abdominal pain, fever, chills, back pain, or any other complaints. Patient verbalized agreement and understanding with this treatment plan and discharge. Differential Diagnosis Differential Diagnoses: The differential diagnosis associated with the presentation includes Low back pain UTI Admission/Observation Consideration of admission/observation: Escalation of care including admission/observation considered Patient would have been admitted to the hospital had her work up had any findings where hospital admission was appropriate and her clinical presentation warranted hospital admission. Lab Data [facility] Lab Attestation statement: I reviewed the patient's lab results. My interpretation of these results are in the [facility] Rationale portion of this note. 03/25/24 07:50 03/25/24 07:50 Labs: Lab Results 08/08/24 08/08/24 Range/Units 07:50 08:05 WBC 5.2 (4.8-10.8) X10*3/uL RBC 4.09 L (4.20-5.50) X10*6/uL Hgb 13.6 (12.0-16.0) g/dl Hct 39.8 (37.0-47.0) % MCV 97.3 (80.0-98.0) fL MCH 33.3 H (27.0-33.0) pg MCHC 34.2 (31.0-35.0) g/dl RDW 12.7 (11.0-16.0) % Plt Count 264 (160-400) X10*3/uL MPV 9.3 L (9.4-12.3) fL Immature Gran % (Auto) 0.2 (0.0-0.4) % Neut % (Auto) 55.5 (45-73) % Lymph % (Auto) 32.3 (20-40) % [place] % (Auto) 8.8 (2-11) % Eos % (Auto) 2.1 (0-4) % Baso % (Auto) 1.1 (0-2) % Lymph # (Auto) 1.7 (1.2-4.9) X10*3/uL [place] # (Auto) 0.5 (0.1-1.2) X10*3/uL Eos # (Auto) 0.1 (0.0-0.4) X10*3/uL Baso # (Auto) 0.1 (0.0-0.2) X10*3/uL Abs Immat Gran (auto) 0.01 (0.00-0.03) X10*3/uL Absolute Neuts (auto) 2.9 (2.0-8.3) x10*3/uL Absolute Nucleated RBC 0.000 (0.0-0.012) X10*3/uL Nucleated RBC % (auto) 0.0 (0.0-0.2) /100WBC Sodium 140 (135-145) mmol/L Potassium 3.7 (3.3-5.1) mmol/L Chloride 106 (96-108) mmol/L Carbon Dioxide 26 (22-29) mmol/L Anion Gap 12 (12-20) BUN 12 (9-16) mg/dL Creatinine 0.68 (0.5-1.4) mg/dL Estim Creat Clear Calc 47.3 Estimated GFR > 60 Random Glucose 94 (60-115) mg/dL Calcium 9.1 (8.4-10.2) mg/dL Magnesium 1.8 (1.6-2.6) mg/dL Total Bilirubin 0.6 (0.0-1.0) mg/dL AST 24 (5-31) U/L ALT 23 (0-31) U/L Alkaline Phosphatase 55 (39-117) U/L Total Protein 7.4 (6.5-8.0) g/dL Albumin 4.3 (3.5-5.0) g/dL Urine Color Yellow Urine Appearance Clear Urine pH 6.5 (5.0-9.0) Ur Specific [place] 1.010 (1.005-1.025) Urine Protein Negative (Neg-Trace) mg/dL Urine Glucose (UA) Negative (Negative) mg/dL Urine Ketones Negative (Negative) mg/dL Urine Blood Negative (Negative) Urine Nitrite Negative (Negative) Ur Leukocyte Esterase Large (3+) H (Negative) Urine RBC 0-2 (0-2) /HPF Urine WBC 11-20 H (0-5) /HPF Ur Squamous Epith Cells 0-2 (0-2) /HPF Urine Bacteria None Seen (None Seen) Hyaline Casts 0-2 (0-2) /LPF Independent Interpretation I performed an independent interpretation of an: CT Scan Interpretation: My interpretation is in agreement with the radiologist's impression of this imaging study. - EXAMINATION: CT ABDOMEN AND PELVIS WITH CONTRAST CLINICAL INFORMATION: Flank pain COMPARISON: Ultrasound abdominal aorta 04/04/2023 TECHNIQUE: Multidetector volumetric images were obtained from the superior aspect of the liver through the pubic symphysis following administration 85 mL of Omnipaque 350 intravenous contrast. Sagittal and coronal reformatted images were obtained on the technologist's workstation. Oral contrast: No It should be noted that all 85 mL of the contrast infiltrated in the patient's right arm at the site of IV insertion. The physician caring for the patient in the emergency room was notified and will follow up with the patient to ensure no complications. This CT examination was performed using dose optimization techniques as appropriate, variously including the following: *Automated exposure control *Adjustment of mA and/or kV according to patient size (this includes techniques or standardized protocols for targeted exams where dose is matched to indication/reason for exam; i.e. extremities or head) *Use of iterative reconstruction technique DLP: 351 mGy-cm FINDINGS: LUNG BASES: The visualized lung bases are unremarkable. LIVER, GALLBLADDER, AND BILIARY TREE: The liver is normal in size, shape, and attenuation. No focal hepatic lesion or biliary ductal dilatation is present. The gallbladder is unremarkable with no evidence of radiopaque gallstones, gallbladder wall thickening, or obvious pericholecystic inflammatory changes. PANCREAS: Unremarkable. SPLEEN: Unremarkable. ADRENAL GLANDS: Unremarkable. KIDNEYS AND URETERS: The kidneys are normal in size, shape, and attenuation. No hydronephrosis, hydroureter, or calculi seen. No perinephric stranding. BLADDER: Unremarkable. GASTROINTESTINAL TRACT: The small and large bowel are unremarkable aside from the presence of colonic diverticula without diverticulitis. The appendix is unremarkable. ABDOMINAL WALL: No significant hernia is appreciated. LYMPH NODES: No retroperitoneal lymphadenopathy. VASCULAR: Calcific atherosclerotic changes are present in the aorta and iliofemoral vessels. There is no evidence of an abdominal aortic aneurysm. PELVIC VISCERA: The uterus and adnexa are unremarkable. OSSEOUS STRUCTURES: Minimal degenerative changes are present spine with mild grade 1 anterolisthesis of L4 upon L5. CT/CT abdomen pelvis w IV con IMPRESSION: 1. A cause for the patient's flank pain has not been found. 2. Incidental note made of colonic diverticulosis without diverticulitis, degenerative changes in the spine and other findings described above. Fleischner guidelines were followed. Dictated By: Terry Watson MD Signed By: Electronically signed by Terry Watson MD 03/25/24 1051 Radiology Impression Discussion of test interpretation with radiology: I have reviewed the radiologist's reading. Prescription Management I considered prescription management with: Antibiotic (patient prescribed an antibiotic for possible UTI) Discharge Plan Discharge Clinical Impression: Acute UTI, Acute flank pain Patient Disposition: Home, Self-Care Instructions: Urinary Tract Infection in Women (DC), Flank Pain (ED) Additional Instructions: Follow up with your primary care provider. Return to the emergency department immediately if your symptoms worsen or if you develop any dizziness, shortness of breath, difficulty breathing, chest pain, blurry vision, loss of vision, nausea, vomiting, abdominal pain, fever, chills, back pain, or any other complaints. Prescriptions: New cefuroxime axetil 250 mg tablet 250 mg PO BID 7 Days Qty: 14 0RF No Action atorvastatin 20 mg tablet 20 mg PO DAILY Qty: 90 1RF latanoprost 0.005 % drops 0 drp ophthalmic (eye) amlodipine 2.5 mg tablet 2.5 mg PO DAILY losartan 100 mg tablet 100 mg PO DAILY levothyroxine 112 mcg tablet 112 mcg PO DAILY aspirin [Adult Aspirin Regimen] 81 mg tablet,delayed release (DR/EC) 81 mg PO DAILY Referrals: Oleg Piña MD [Primary Care Provider] - Interventions: ED Discharge Assessment Last Done: 03/25/24 11:39 Discharge Date/Time: 03/25/24 11:45 Print Language: [place]
[2024-03-25 07:53] LABS: MANUAL DIFF FLAG NO
[2024-03-25 07:58] LABS: Basophils Absolute Auto 0.1 X10*3/uL (0.0-0.2); Basophils Percent Auto 1.1 % (0-2); Eosinophils Absolute Auto 0.1 X10*3/uL (0.0-0.4); Eosinophils Percent Auto 2.1 % (0-4); Hematocrit 39.8 % (37.0-47.0); Hemoglobin 13.6 g/dl (12.0-16.0); Imm Gran Abs Auto 0.01 X10*3/uL (0.00-0.03); Imm Gran Pct Auto 0.2 % (0.0-0.4); Lymphocytes Absolute Auto 1.7 X10*3/uL (1.2-4.9); Lymphocytes Percent Auto 32.3 % (20-40); Mean Corpuscular HGB Conc 34.2 g/dl (31.0-35.0); Mean Corpuscular Hemoglobin 33.3 pg (27.0-33.0); Mean Corpuscular Volume 97.3 fL (80.0-98.0); Mean Platelet Volume 9.3 fL (9.4-12.3); Monocytes Absolute Auto 0.5 X10*3/uL (0.1-1.2); Monocytes Percent Auto 8.8 % (2-11); Neutrophils Absolute Auto 2.9 x10*3/uL (2.0-8.3); Neutrophils Percent Auto 55.5 % (45-73); Platelet Count 264 X10*3/uL (160-400); Red Blood Count 4.09 X10*6/uL (4.20-5.50); Red Cell Distribution Width 12.7 % (11.0-16.0); White Blood Count 5.2 X10*3/uL (4.8-10.8)
[2024-03-25 08:11] LABS: Alanine Aminotransferase 23 U/L (0-31); Albumin Level 4.3 g/dL (3.5-5.0); Alkaline Phosphatase 55 U/L (39-117); Anion Gap 12 (12-20); Aspartate Amino Transferase 24 U/L (5-31); Bilirubin Total 0.6 mg/dL (0.0-1.0); Blood Urea Nitrogen 12 mg/dL (9-16); Calcium 9.1 mg/dL (8.4-10.2); Carbon Dioxide 26 mmol/L (22-29); Chloride 106 mmol/L (96-108); Creatinine Clr Calc Pharmacy 47.3; Estimated Glomerular Filt Rate > 60; Glucose Random 94 mg/dL (60-115); Magnesium 1.8 mg/dL (1.6-2.6); Potassium 3.7 mmol/L (3.3-5.1); Sodium 140 mmol/L (135-145); Total Protein 7.4 g/dL (6.5-8.0)
[2024-03-25 08:32] LABS: Appearance Urine Clear; Color Urine Yellow; Glucose Urine UA Negative (Negative); Leukocyte Esterase Urine Large (3+) (Negative); Nitrite Urine Negative (Negative); PH 6.5 (5.0-9.0); UMIC TRIGGER UACC YES; Urine Blood Negative (Negative); Urine Ketones Negative (Negative); Urine Protein Negative (Neg-Trace)
[2024-03-25 08:37] LABS: Bacteria Urine None Seen (None Seen); Hyaline Casts Urine 0-2 /LPF (0-2); RBC Urine 0-2 /HPF (0-2); Squamous Epithelial Cell Urine 0-2 /HPF (0-2); UACC Culture Trigger YES
[2024-03-25] MEDS: iohexoL 350 MG/ML 100 ML INFUS..BTL IV (09:17)
[2024-03-25] MEDS: Ketorolac Tromethamine 15 MG/ML VIAL IM (09:31)
[2024-03-25] MEDS: Cyclobenzaprine HCl 5 MG TABLET PO (09:31)
[2024-03-25] MEDS: oxyCODONE HCl Immed Release 5 MG TABLET PO (09:31)
[2024-03-25 10:06] VITALS: BP 149/84; PULSE 71; RESP 15; O2SAT 96
[2024-03-25 10:31] VITALS: BP 149/84; PULSE 71; RESP 14
[2024-03-25 11:39] VITALS: BP 149/84; PULSE 71; RESP 14; TEMP -17.7; TEMP 0; O2SAT 98
== END 2024-03-25 11:45 | disposition home or self-care (01) ==
PROVIDERS: Physician Assistant Medical; Emergency Provider Student in an Organized Health Care Education/Training Program; PCP Internal Medicine
DX: N39.0 Urinary tract infection, site not specified (principal); R10.9 Unspecified abdominal pain; I10 Essential (primary) hypertension; Z79.82 Long term (current) use of aspirin; Z79.899 Other long term (current) drug therapy
CPT/HCPCS: 36415; 74177; 80053; 81001; 83735; 85025; 87086; 87147; 96372; 99284; J1885; Q9967

== ENCOUNTER 2024-04-12 13:51 | Outpatient (REF) | payer MEDICARE, OTHER, SELFPAY ==
--- NOTE | ~2024-04-12 | XR_ITS ---
EXAMINATION: XR HIP, LEFT CLINICAL INFORMATION: Left hip pain COMPARISON: CT abdomen and pelvis CT 2023 TECHNIQUE: Two views of the left hip. FINDINGS: No fracture. Alignment is anatomic. Mild superior joint space narrowing. The pubic symphysis and bilateral sacroiliac joints are intact. No acute soft tissue abnormality. No abnormal soft tissue calcifications. XR/XR hip LT min 2V IMPRESSION: No acute fracture. Mild degenerative change involving the left hip. Electronically signed by: James Wagner MD 04/12/2024 08:35 PM EDT
== END 2024-04-12 13:52 | disposition home or self-care (01) ==
LOC: HO.XRAY 13:51
PROVIDERS: PCP Internal Medicine; Visit Provider Internal Medicine
DX: M25.552 Pain in left hip (principal)
CPT/HCPCS: 73502

== ENCOUNTER 2024-04-28 13:55 | Outpatient (REF) | payer MEDICARE, OTHER, SELFPAY ==
--- NOTE | ~2024-04-28 | MR_ITS ---
EXAMINATION: MR LUMBAR SPINE WITHOUT CONTRAST CLINICAL INFORMATION: [Low back pain, left hip pain. Symptoms x1 month. No injury. 83-year-old female. Osteoporosis. COMPARISON: No prior MR. Correlation made with CT abdomen and pelvis 03/25/2024. TECHNIQUE: Multiplanar multisequence MR imaging of the lumbar spine was done without IV contrast. Examination was performed on a 1.5 Ida Siemens unit with standard sequences. Please note, due to [facility] contractual, systems, and staffing issues, an [facility] radiologist was not available for review and dictation of this case until 05/14/2024. FINDINGS: CORONAL ALIGNMENT: Subtle levoconvex scoliosis. SAGITTAL ALIGNMENT: -Normal lordosis. -There is a 2 mm degenerative anterolisthesis of L2 on L3. -There is a 4 mm degenerative anterolisthesis of L4 on L5. LUMBOSACRAL JUNCTION: -Normal. There are 5 [id number] lumbar-type vertebral bodies. VERTEBRAL BODIES/BONE MARROW: -There are no compression deformities. There are a few scattered Schmorl's nodes, most notably in the inferior endplate of T11. -Minimal anterior edematous endplate changes present at L2-3 and L5-S1. -No additional bone marrow edema. No abnormal infiltrating bone marrow signal appreciated. DISCS: -There is diffuse loss of disc signal. -Moderate loss of disc height at L2-3, and L4-5. SPINAL CANAL: -No abnormal developmental findings. 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 CONUS MEDULLARIS: -Terminates at L1-L2 disc level. Morphology and signal is normal. INTRADURAL NERVE ROOTS: -Within normal limits. No masses or abnormal clumping. Normal distribution within the thecal sac. Axial Disc Space Images: T12-L1: Only seen on the sagittal imaging and axial T1. Trace disc bulge present. No central canal or neural foraminal narrowing. There are small bilateral nerve root sleeves cysts within the neural foramen. L1-L2: No significant central canal or neural foraminal narrowing. Normal facets. There is a rather prominent nerve root sleeve cyst in the left neural foramen measuring 7 x 13 x 10 mm (AP, TRV, CC). This is best seen (axial series 8, image 2) L2-L3: There is a diffuse concentric disc bulge extending into both foraminal zones symmetrically. Annular fissuring noted in the left lateral to foramen zone. There are mild hypertrophic facet changes bilaterally with mild posterior ligamentous thickening/infolding. Findings result in mild central canal stenosis, mild left greater than right subarticular recess stenosis, with contact but no deviation of the traversing left L3 roots. There is mild to moderate bilateral neural foraminal narrowing without nerve root impingement. There is a small nerve root sleeve cyst in the right neural foramen measuring 5mm. L3-L4: There are bilateral lateral and foraminal broad-based disc protrusions present. There are mild hypertrophic degenerative facet changes bilaterally with prominent posterior ligamentous infolding/thickening. Combination of findings is resulting in mild central canal stenosis, mild to moderate bilateral subarticular recess stenosis with contact but no deviation of the left traversing L4 roots. There is mild to moderate bilateral neural foraminal narrowing without evidence of nerve root contact or impingement. L4-L5: There is disc uncovering secondary to 5 mm anterolisthesis. There is a superimposed disc bulge present concentrically involving both foraminal zones. There are severe degenerative facet changes bilaterally, with facet joint effusions, and there is marked posterior ligamentous thickening/infolding. There is moderate to severe central canal stenosis (AP diameter thecal sac 8 mm), moderate bilateral subarticular recess stenosis with contact but no definite impingement of the traversing bilateral L5 roots. There is moderate to severe left and moderate right neural foraminal narrowing, with contacting deviation of the exiting left L4 root, and mild contact with no deviation of the exiting right L4 root. L5-S1: There is a subtle concentric diffuse bulging disc, which indents upon the ventral thecal sac but does not contact nerve roots. There are mild to moderate degenerative facet changes right greater than left, with the right facet joint effusion. There is mild posterior ligamentous thickening/infolding. There is mild central canal narrowing, no significant subarticular recess narrowing, and mild bilateral neural foraminal narrowing. IMAGED SI JOINTS: -Mild to moderate degenerative arthrosis. PARAVERTEBRAL AND INCLUDED EXTRASPINAL SOFT TISSUES: -Both kidneys demonstrate extrarenal pelvises. The aorta is nonaneurysmal. No gallstones noted. Common duct is normal in caliber. No retroperitoneal lymphadenopathy. -Mild atrophy of the paraspinous and paravertebral musculature. MR/MR lumbar spine wo con IMPRESSION: -Moderate lumbar spondylosis most significant at L4-5 where there is a 4 mm degenerative anterolisthesis, severe bilateral hypertrophic degenerative facet changes, resulting in moderate central canal stenosis, moderate bilateral subarticular recess stenosis with contact but no definite impingement of the traversing bilateral L5 nerve roots, and moderate to severe left and moderate right neural foraminal stenosis. -There is a subtle levoconvex scoliosis. 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 -Prominent left foraminal nerve root sleeve cyst L1-2 measuring 7 x 13 x 10 mm. -See the body of the report for additional details and findings. Electronically signed by: Olivier Ferro MD 05/14/2024 09:32 AM EDT
== END 2024-04-28 13:56 | disposition home or self-care (01) ==
LOC: HO.MRI 13:55
PROVIDERS: PCP Internal Medicine; Visit Provider Internal Medicine
DX: M54.50 Low back pain, unspecified (principal); M81.0 Age-related osteoporosis without current pathological fracture
CPT/HCPCS: 72148

== ENCOUNTER → 2024-04-28 14:06 | Outpatient (BNV) | payer MEDICARE, OTHER, SELFPAY | PROVIDERS: PCP Internal Medicine; Visit Provider Radiology Diagnostic Radiology | DX: M54.50 Low back pain, unspecified (principal) | CPT/HCPCS: 72148 ==